=== PATIENT | female | born 1950 | race African-American/Black ===

== ENCOUNTER 2024-09-14 14:50 | Inpatient (IN) | payer BC ==
[~2024-09-14] VITALS: Ht 167.6 cm; Wt 80.5 kg
[2024-09-14] MEDS: ASPIRIN 325MG TABLET PO ONE (15:36)
[2024-09-14] MEDS: ACETAMINOPHEN 325MG TABLET PO ONE (15:36)
[2024-09-14 15:51] LABS: CHLORIDE 107 mEq/L (98-107); POTASSIUM 3.8 mEq/L (3.5-5.1); SODIUM 143 mEq/L (136-145)
[2024-09-14 15:52] LABS: CALCIUM 9.6 mg/dL (8.7-10.4); CARBON DIOXIDE 27 mEq/L (21-32)
[2024-09-14 15:54] LABS: BASOPHILS % 2.4 % (0.0-2.0); EOSINOPHILS % 3.4 % (0.0-5.0); HEMATOCRIT. 34.6 % (36.0-48.0); HEMOGLOBIN. 11.3 g/dL (12.0-16.0); LYMPHOCYTES % 33.6 % (20.0-50.0); MEAN CORPUSCULAR HEMOGLOBIN 26.3 pg (28.0-32.0); MEAN CORPUSCULAR HGB CONC 32.8 g/dL (31.0-37.0); MEAN CORPUSCULAR VOLUME 80.3 fL (81.0-99.0); MEAN PLATELET VOLUME 7.6 fl (7.4-10.4); MONOCYTES % 9.2 % (2.0-8.0); NEUTROPHILS % 51.4 % (40.0-76.0); PLATELET 371 x1000/uL (130-400); RED BLOOD CELL COUNT 4.31 mill/uL (4.2-5.4); RED CELL DISTRIBUTION WIDTH 14.8 % (11.6-14.6); WHITE BLOOD COUNT 5.2 x1000/uL (4.5-11.0)
[2024-09-14 15:57] LABS: GLUCOSE 89 mg/dL (70-105); UREA NITROGEN BLOOD 11 mg/dL (9-23)
[2024-09-14 15:58] LABS: TROPONIN I HIGH SENSITIVITY 6 ng/L (3.0-34)
[2024-09-14 15:59] LABS: ALANINE AMINOTRANSFERASE 20 IU/L (10-49); ALBUMIN 4.4 g/dL (3.2-4.8); ASPARTATE AMINOTRANSFERASE 26 IU/L (<34); BILIRUBIN DIRECT 0.1 mg/dL (<=3.0); BILIRUBIN TOTAL 0.5 mg/dL (0.1-1.0); PROTEIN TOTAL 6.9 g/dL (6.0-8.3)
[2024-09-14] MEDS ORDERED: IPRATROPIUM/ALBUTEROL 0.5-3(2.5)MG/3ML NEB HHN PRN (17:30)
[2024-09-14] MEDS ORDERED: ACETAMINOPHEN 325MG TABLET PO PRN ×2 (17:30)
[2024-09-14] MEDS ORDERED: ONDANSETRON HCL 4MG/2ML INJ IV PRN (17:30)
[2024-09-14 17:51] LABS: TROPONIN I HIGH SENSITIVITY 5 ng/L (3.0-34)
[2024-09-14 17:55] LABS: IRON 42 ug/dL (50-170)
[2024-09-14 17:58] LABS: TOTAL IRON BINDING CAPACITY 380 ug/dl (250-425)
[2024-09-14 18:13] LABS: FOLIC ACID (FOLATE) SERUM 13.09 ng/mL (>5.38); VITAMIN B12 SERUM 1119 pg/mL (211-911)
[2024-09-14] MEDS: HYDRALAZINE 20MG/ML VIAL IV NR (18:13)
[2024-09-14 18:14] LABS: FERRITIN 7 ng/mL (10-291)
[2024-09-14] MEDS: AMLODIPINE 5MG TABLET PO NR (19:52)
[2024-09-14] MEDS: PANTOPRAZOLE 40MG DR TABLET PO SCH (19:53)
[2024-09-14] MEDS ORDERED: HYDRALAZINE 20MG/ML VIAL IV PRN (22:00)
[2024-09-14] MEDS: CLONIDINE 0.1MG TABLET PO PRN (22:13)
[2024-09-14 22:32] VITALS: BP 166/75; PULSE 65; RESP 18; TEMP 36.5
[2024-09-15 00:03] VITALS: BP 123/71; PULSE 63; RESP 18; TEMP 36.2; O2SAT 98
[2024-09-15 07:18] LABS: BASOPHILS % 1.5 % (0.0-2.0); DIFFERENTIAL COMMENT 0; HEMATOCRIT. 32.2 % (36.0-48.0); HEMOGLOBIN. 10.6 g/dL (12.0-16.0); LYMPHOCYTES % 34.8 % (20.0-50.0); MEAN CORPUSCULAR HEMOGLOBIN 25.8 pg (28.0-32.0); MEAN CORPUSCULAR VOLUME 78.1 fL (81.0-99.0); MEAN PLATELET VOLUME 7.6 fl (7.4-10.4); MONOCYTES % 10.9 % (2.0-8.0); NEUTROPHILS % 46.8 % (40.0-76.0); PLATELET 309 x1000/uL (130-400); RED BLOOD CELL COUNT 4.12 mill/uL (4.2-5.4); RED CELL DISTRIBUTION WIDTH 14.8 % (11.6-14.6); WHITE BLOOD COUNT 3.6 x1000/uL (4.5-11.0)
[2024-09-15 07:30] LABS: CALCIUM 9.3 mg/dL (8.7-10.4); CHLORIDE 107 mEq/L (98-107); POTASSIUM 3.8 mEq/L (3.5-5.1); SODIUM 143 mEq/L (136-145)
[2024-09-15 07:31] LABS: CARBON DIOXIDE 27 mEq/L (21-32)
[2024-09-15 07:36] LABS: CREATININE 0.9 mg/dL (0.6-1.0); GLUCOSE 87 mg/dL (70-105); TRIGLYCERIDE 47 mg/dL (0-150); UREA NITROGEN BLOOD 10 mg/dL (9-23)
[2024-09-15 07:37] LABS: LDL CHOLESTEROL 119 mg/dL (5-100)
[2024-09-15 07:38] LABS: CHOLESTEROL 220 mg/dL (<200); HDL CHOLESTEROL 77 mg/dL (>65); T4 FREE 1.17 ng/dL (0.89-1.76); THYROID STIMULATING HORMONE 0.98 uIU/mL (0.55-4.78)
[2024-09-15 08:00] VITALS: BP 135/68; PULSE 78; RESP 15; TEMP 36.7; O2SAT 98
[2024-09-15] MEDS: ASCORBIC ACID 500 MG TABLET PO SCH (08:42)
[2024-09-15] MEDS: ENOXAPARIN 40MG/0.4ML SYR SUBCUT SCH (08:42)
[2024-09-15] MEDS: AMLODIPINE 5MG TABLET PO SCH (08:42)
[2024-09-15] MEDS: FERROUS SULFATE 325MG TABLET PO SCH (08:42)
[2024-09-15 11:00] VITALS: BP 145/86; PULSE 62; TEMP 98.6; O2SAT 98
[2024-09-15 11:07] LABS: CLARITY URINE CLEAR (CLEAR); COLOR URINE YELLOW (YELLOW); GLUCOSE URINE NEGATIVE (NEGATIVE); KETONES URINE NEGATIVE (NEGATIVE); LEUKOCYTE ESTERASE URINE TRACE (NEGATIVE); NITRITE URINE NEGATIVE (NEGATIVE); OCCULT BLOOD URINE NEGATIVE (NEGATIVE); PH URINE 7.5 (4.5-8.0); PROTEIN URINE NEGATIVE (NEGATIVE); SPECIFIC GRAVITY URINE 1.008 (1.005-1.030); UROBILINOGEN URINE 0.2 E.U./dL (0.2-1.0)
[2024-09-15 11:50] VITALS: BP 147/79; PULSE 75; RESP 16; TEMP 36.7; O2SAT 97
[2024-09-15 12:10] LABS: SQUAMOUS EPITHELIAL CELL URINE RARE /lpf (RARE/1+); WBC URINE 0-2 /hpf (0-2)
[2024-09-15 12:12] LABS: RBC URINE NONE SEEN /hpf (0-2)
[2024-09-15 12:13] LABS: BACTERIA URINE NONE SEEN
[2024-09-15] MEDS ORDERED: AMLO5TAB88 PO (13:15)
[2024-09-15] MEDS ORDERED: FERR-63 PO (13:15)
== END 2024-09-15 14:40 | disposition home or self-care (01) | DRG 305 ==
LOC: ER 14:50 → EDBEDREQ 16:37 → EDBEDREQTM 16:37 → 8WST 21:59
PROVIDERS: ADMIT Internal Medicine; ATTEND Internal Medicine
DX: I16.1 Hypertensive emergency (principal); E78.5 Hyperlipidemia, unspecified; I10 Essential (primary) hypertension; D50.9 Iron deficiency anemia, unspecified; Z79.899 Other long term (current) drug therapy; Z82.49 Family history of ischemic heart disease and other diseases of the circulatory system; Z88.0 Allergy status to penicillin
CPT/HCPCS: 36415; 71045; 80048; 80061; 80076; 81003; 82607; 82728; 82746; 82962; 83540; 83550; 83880; 84439; 84443; 84481; 84484; 85025; 93005; 99291; J0360; J1650